=== PATIENT | female | born 1940 | race African-American/Black ===

== ENCOUNTER → 2020-02-22 10:45 | Outpatient (CLI) | payer MEDICARE, SELFPAY ==
--- NOTE | ~2020-02-22 | MM_ITS ---
EXAMINATION: MM screening lianet BI w brigida HISTORY: Screening TECHNIQUE: Craniocaudal and mediolateral oblique 3-D tomosynthesis images were obtained and synthetic 2-D images were generated. CAD analysis was submitted and interpreted. COMPARISON: Comparison to multiple prior studies sequentially, with oldest reviewed study dated 10/25. BREAST PARENCHYMAL COMPOSITION: Breast composed of scattered areas of fibroglandular density. FINDINGS: There is a developing asymmetry lateral aspect of the right breast on CC view. There are no nspecific calcifications in the upper inner quadrant of the left breast. IMPRESSION: 1. Developing right breast asymmetry laterally on CC view. Developing clustered calcifications upper inner quadrant of the left breast. 2. Additional mammographic views and possible breast ultrasound are recommended. BI-RADS Category 0: Incomplete: Needs additional imaging evaluation. Reviewed, dictated and finalized at location A. ESS ARCHITECT IMPRESSION: 1. Developing right breast asymmetry laterally on CC view. Developing clustered calcifications upper inner quadrant of the left breast. 2. Additional mammographic views and possible breast ultrasound are recommended . BI-RADS Category 0: Incomplete: Needs additional imaging evaluation.
== END ==
PROVIDERS: PCP Internal Medicine; Visit Provider Internal Medicine
DX: Z12.31 Encounter for screening mammogram for malignant neoplasm of breast (principal); R92.8 Other abnormal and inconclusive findings on diagnostic imaging of breast
CPT/HCPCS: 77063; 77067

== ENCOUNTER → 2020-03-27 08:53 | Outpatient (CLI) | payer MEDICARE, SELFPAY ==
--- NOTE | ~2020-03-27 | MMUS_ITS ---
EXAMINATION: MM diagnostic lianet BI w brigida, US breast RT limited HISTORY: Developing right breast asymmetry laterally on craniocaudal view. Developing clustered calci fications of the upper inner quadrant of left breast. TECHNIQUE: Additional 3-D tomosynthesis images of both breasts were performed including bilateral ML full field and multiple right spot views, and synthetic 2-D images were generated. Rolled medial and rolled lateral CC views of right breast. Magnification view of left breast. CAD analysis was submi tted and interpreted. High resolution right upper outer and lower outer quadrant breast ultrasound wa s performed. COMPARISON: 02/22/2020 bilateral digital screening mammogram FINDINGS: MAMMOGRAPHIC FINDINGS: There are benign arterial calcifications on the left. No malignant calcification is evident. No suspicious reproducible breast mass is detected. ULTRASOUND: There is a benign appearing 4.5 x 3.5 x 4.7 mm lymph node at 9:00 5 cm from nipple. No suspicious mass is detected. IMPRESSION: 1. No mammographic evidence of malignancy 2. Routine annual mammographic screening is recommended. BIRADS Category 2: Benign Reviewed, dictated and finalized at location A. OPEDIC BRACE MAKER IMPRESSION: 1. No mammographic evidence of malignancy 2. Routine annual mammographic screening is recommended. BIRADS Category 2: Benign
== END ==
PROVIDERS: PCP Internal Medicine; Visit Provider Internal Medicine
DX: R92.8 Other abnormal and inconclusive findings on diagnostic imaging of breast (principal)
CPT/HCPCS: 76642; 77062; 77066; G0279

== ENCOUNTER → 2021-02-24 12:00 | Outpatient (CLI) | payer MEDICARE, SELFPAY ==
--- NOTE | ~2021-02-24 | MM_ITS ---
EXAMINATION: MM screening lianet BI w brigida HISTORY: Screening TECHNIQUE: Craniocaudal and mediolateral oblique 3-D tomosynthesis images were obtained and synthetic 2-D images were generated. CAD analysis was submitted and interpreted. COMPARISON: Comparison to multiple prior studies sequentially, with oldest reviewed study dated 10/25. BREAST PARENCHYMAL COMPOSITION: There are scattered areas of fibroglandular density. FINDINGS: There is no evidence of suspicious mass, calcification, or architectural distortion to sugg est malignancy in either breast. There has been no suspicious interval change. IMPRESSION: 1. No mammographic evidence of malignancy. 2. Recommend routine screening mammography in one year. BI-RADS Category 1: Negative Reviewed, dictated and finalized at location A. TTING MANAGER
== END ==
PROVIDERS: PCP Internal Medicine; Visit Provider Internal Medicine
DX: Z12.31 Encounter for screening mammogram for malignant neoplasm of breast (principal)
CPT/HCPCS: 77063; 77067

== ENCOUNTER → 2021-07-14 13:11 | Outpatient (CLI) | payer MEDICARE, SELFPAY ==
--- NOTE | ~2021-07-14 | US_ITS ---
EXAMINATION: US retroperitoneal comp DATE: 07/14/2021 13:38 INDICATION: Stage I chronic kidney disease TECHNIQUE: Multiple ultrasound grayscale images of the kidneys were obtained. COMPARISON: None. FINDINGS: The right kidney measures 9.3 x 3.9 x 4.5 cm. The left kidney measures 9.8 x 5.7 x 5.6 cm. The kidney s demonstrate normal echogenicity. Bilateral anechoic renal cysts measuring 2.0 cm the upper pole of the right kidney, 3.6 cm at the lower pole of left kidney and 1.0 cm at the mid left kidney. There is no hydronephrosis in either kidney. No stones identified. The bladder is normal. IMPRESSION: 1. Bilateral renal cysts. Otherwise normal kidneys with no hydronephrosis. Reviewed, dictated and finalized at location B.
== END ==
PROVIDERS: PCP Specialist; Visit Provider Specialist
DX: N18.1 Chronic kidney disease, stage 1 (principal); N28.1 Cyst of kidney, acquired
CPT/HCPCS: 76770

== ENCOUNTER → 2022-02-25 12:06 | Outpatient (CLI) | payer MEDICARE, SELFPAY ==
--- NOTE | ~2022-02-25 | MM_ITS ---
EXAMINATION: MM screening lianet BI w brigida HISTORY: Screening TECHNIQUE: Craniocaudal and mediolateral oblique 3-D tomosynthesis images were obtained and synthetic 2-D images were generated. CAD analysis was submitted and interpreted. COMPARISON: Comparison to multiple prior studies sequentially, with oldest reviewed study dated 03/2016. BREAST PARENCHYMAL COMPOSITION: There are scattered areas of fibroglandular density. FINDINGS: There is no evidence of suspicious mass, calcification, or architectural distortion to sugg est malignancy in either breast. There has been no suspicious interval change. IMPRESSION: 1. No mammographic evidence of malignancy. 2. Recommend routine screening mammography in one year. BI-RADS Category 1: Negative Reviewed, dictated and finalized at location A. ER ATTACHER
== END ==
PROVIDERS: PCP Internal Medicine; Visit Provider Internal Medicine
DX: Z12.31 Encounter for screening mammogram for malignant neoplasm of breast (principal)
CPT/HCPCS: 77063; 77067

== ENCOUNTER → 2022-12-13 10:02 | Outpatient (CLI) | payer MEDICARE, SELFPAY ==
--- NOTE | ~2022-12-13 | DEXA_ITS ---
Bone Density Report Name: JANETH DORSEY Age: 82 Sex: Female Ethnicity: Black Date of : 1940 Indication: osteopenia; height loss; prior fracture; hysterectomy; postmenopausal Referring Provider: [place], [place] Study: Bone densitometry was performed. Exam Date: December 13, 2022 Accession number: [id number] Bone Density: Region BMD T-score Z-score Classification AP Spine (L1-L4) 0.775 -2.5 -0.3 Osteoporosis Femoral Neck (Left) 0.607 -2.2 -0.5 Osteopenia Total Hip (Left) 0.789 -1.3 0.1 Osteopenia Femoral Neck (Right) 0.567 -2.5 -0.8 Osteoporosis Total Hip (Right) 0.741 -1.6 -0.2 Osteopenia Total Hip Mean 0.765 -1.5 -0.1 Osteopenia World Health Organization criteria for BMD impression classify patients as: Normal (T-score at or above -1.0), Osteopenia (T-score between -1.0 and -2.5), or Osteoporosis (T-score at or below -2.5). 10-year Fracture Risk: FRAX not reported because: Some T-score for Spine Total or Hip Total or Femoral Neck at or below -2.5 Previous Exams: Region Exam Age BMD T-score BMD Change BMD Change Date g/cm2 vs Baseline vs Previous AP Spine(L1-L4) 12/13/2022 82 0.775 -2.5 -0.136 -0.064* 01/30/2019 78 0.839 -1.9 -0.072 -0.001 01/21/2016 75 0.840 -1.9 -0.071 -0.071 07/19/2005 64 0.911 -1.2 Total Hip(Left) 12/13/2022 82 0.789 -1.3 -0.145* -0.050* 01/30/2019 78 0.839 -0.8 -0.095* 0.049 01/21/2016 75 0.791 -1.2 -0.143 -0.143 07/19/2005 64 0.934 -0.1 Total Hip(Right) 12/13/2022 82 0.741 -1.6 -0.180* -0.094* 01/30/2019 78 0.835 -0.9 -0.086* 0.064 01/21/2016 75 0.770 -1.4 -0.151 -0.151 07/19/2005 64 0.921 -0.2 *Denotes significance at 95% confidence level, LSC for AP Spine = 0.022 g/cm2, LSC for Total Hip = 0.027 g/cm2 Clinical Information Provided by Patient: Has had a low trauma fracture Has used the following medications: Vitamin D Has the following medical conditions: Hysterectomy Patient maximum height was 68 Menopause Age: 48 Does not regularly consume dairy products Drinks caffeinated beverages Onset of menses at age 12 Number of children 4 Impression: The patient has established osteoporosis, based on the Total Spine T-score and the existence of a prior fracture. The patient has risk factors, including: previous fr
== END ==
PROVIDERS: PCP Internal Medicine; Visit Provider Internal Medicine
DX: Z78.0 Asymptomatic menopausal state (principal); M85.89 Other specified disorders of bone density and structure, multiple sites; M81.0 Age-related osteoporosis without current pathological fracture
CPT/HCPCS: 77080

== ENCOUNTER → 2023-03-01 10:01 | Outpatient (CLI) | payer MEDICARE, SELFPAY ==
--- NOTE | ~2023-03-01 | MM_ITS ---
EXAMINATION: MM screening lianet BI w brigida HISTORY: Screening TECHNIQUE: Craniocaudal and mediolateral oblique 3-D tomosynthesis images were obtained and synthetic 2-D images were generated. CAD analysis was submitted and interpreted. COMPARISON: Comparison to multiple prior studies sequentially, with oldest reviewed study dated 09/2017. BREAST PARENCHYMAL COMPOSITION: Breast composed of scattered areas of fibroglandular density FINDINGS: There is developing asymmetry with calcifications in the upper outer quadrant of the right breast, middle depth. The left breast is stable without evidence for malignancy. IMPRESSION: 1. Developing asymmetry upper outer quadrant of the right breast. 2. Additional mammographic views and possible breast ultrasound are recommended. BI-RADS Category 0: Incomplete: Needs additional imaging evaluation. Reviewed, dictated and finalized at location A. L PAN FORM PLACING SUPERVISOR IMPRESSION: 1. Developing asymmetry upper outer quadrant of the right breast. 2. Additional mammographic views and possible breast ultrasound are recommended . BI-RADS Category 0: Incomplete: Needs additional imaging evaluation.
== END ==
PROVIDERS: PCP Internal Medicine; Visit Provider Internal Medicine
DX: Z12.31 Encounter for screening mammogram for malignant neoplasm of breast (principal); R92.8 Other abnormal and inconclusive findings on diagnostic imaging of breast
CPT/HCPCS: 77063; 77067

== ENCOUNTER → 2023-04-05 09:53 | Outpatient (CLI) | payer MEDICARE, SELFPAY ==
--- NOTE | ~2023-04-05 | MMUS_ITS ---
EXAMINATION: MM diagnostic lianet RT w brigida, US breast RT limited HISTORY: Follow-up right breast asymmetry TECHNIQUE: Additional 3-D tomosynthesis images of the right breast were performed and synthetic 2-D i mages were generated. CAD analysis was submitted and interpreted. High resolution Limited right breas t ultrasound was performed. COMPARISON: Comparison to multiple prior studies sequentially, with oldest reviewed study dated 12/14. BREAST PARENCHYMAL COMPOSITION: Not dense: There are scattered areas of fibroglandular density. FINDINGS: MAMMOGRAPHIC FINDINGS: There is a focal asymmetry in the upper outer quadrant of the right breast with developing indetermin ate calcifications. There are no suspicious areas of architectural distortion. ULTRASOUND: Limited right breast ultrasound: At 10:00, 5 cm from the nipple, there is a slightly irregular shaped predominantly hypoechoic 4 mm mass with internal echogenic foci, likely calcifications. This likely corresponds to the area of mammographic concern. IMPRESSION: 1. Irregular shaped 4 mm mass with internal calcifications at the 10:00 position, 5 cm from the nippl e. 2. Stereotactic right breast biopsy recommended. BI-RADS category 4, suspicious findings. Reviewed, dictated and finalized at location A. MAKER IMPRESSION: 1. Irregular shaped 4 mm mass with internal calcifications at the 10:00 positio n, 5 cm from the nipple. 2. Stereotactic right breast biopsy recommended. BI-RADS category 4, suspicious findings.
== END ==
PROVIDERS: PCP Internal Medicine; Visit Provider Internal Medicine
DX: R92.8 Other abnormal and inconclusive findings on diagnostic imaging of breast (principal)
CPT/HCPCS: 76642; 77061; 77065; G0279

== ENCOUNTER 2023-05-02 14:27 | Outpatient (CLI) | payer MEDICARE, SELFPAY ==
--- NOTE | ~2023-05-02 | MM_ITS ---
MM consultation 05/02/2023 14:28 Indication: Abnormal calcifications seen on prior examination. Biopsy requested. Procedure: Stereotactic biopsy was attempted without success due to technical difficulties. Comparison: 04/05/2013 Findings: Stereotactic biopsy could not be performed due to technical difficulties. Consider repeat s tereotactic biopsy, ultrasound-guided biopsy or surgical biopsy using wire localization or magseed pl acement. Impression: 1: Unsuccessful stereotactic biopsy. Recommendation discussed above. BI-RADS CATEGORY 4-SUSPICIOUS ABNORMALITY Reviewed, dictated and finalized at location A. Impression: 1: Unsuccessful stereotactic biopsy. Recommendation discussed above. BI-RADS CATEGORY 4-SUSPICIOUS ABNORMALITY
== END 2023-05-02 14:28 | disposition home or self-care (01) ==
PROVIDERS: PCP Internal Medicine; Visit Provider Internal Medicine
DX: N63.10 Unspecified lump in the right breast, unspecified quadrant (principal); R92.8 Other abnormal and inconclusive findings on diagnostic imaging of breast
CPT/HCPCS: 99199

== ENCOUNTER 2024-04-09 13:57 | Outpatient (CLI) | payer OTHER, SELFPAY ==
--- NOTE | ~2024-04-09 | XR_ITS ---
Right elbow Technique: AP, oblique, and lateral views were obtained. Clinical History: Pain Findings: No acute fracture or dislocation is seen. Osseous alignment is anatomic. Joint spaces are p reserved. There is no displacement of the fat pads, and soft tissues are unremarkable. Impression: Unremarkable radiographs. Reviewed, dictated and finalized at [facility]. L COMBINATION TRUCK DRIVER Impression: Unremarkable radiographs.
== END 2024-04-09 13:58 | disposition home or self-care (01) ==
LOC: MICIMG 14:02
PROVIDERS: PCP Family Medicine; Visit Provider Orthopaedic Surgery
DX: M25.521 Pain in right elbow (principal)
CPT/HCPCS: 73080

== ENCOUNTER 2024-12-16 13:51 | Outpatient (CLI) | payer OTHER, SELFPAY ==
--- NOTE | ~2024-12-16 | DEXA_ITS ---
Bone Density Report Name: JANETH DORSEY Age: 84 Sex: Female Ethnicity: Black Date of : 1940 Indication: postmenopausal osteoporosis; height loss; prior fracture; hysterectomy; Referring Provider: SHANAE WEBB Study: Bone densitometry was performed. Exam Date: December 16, 2024 Accession number: [id number] Bone Density: Region BMD T-score Z-score Classification AP Spine(L1-L4) 0.774 -2.5 Osteoporosis Femoral Neck (Left) 0.583 -2.4 Osteopenia Total Hip (Left) 0.738 -1.7 Osteopenia Femoral Neck (Right) 0.555 -2.6 Osteoporosis Total Hip (Right) 0.707 -1.9 Osteopenia Total Hip Mean 0.723 -1.8 0.0 Osteopenia World Health Organization criteria for BMD impression classify patients as: Normal (T-score at or above -1.0), Osteopenia (T-score between -1.0 and -2.5), or Osteoporosis (T-score at or below -2.5). 10-year Fracture Risk: FRAX not reported because: Some T-score for Spine Total or Hip Total or Femoral Neck at or below -2.5 Previous Exams: -- Region Exam Age BMD T-score BMD Change BMD Change Date g/cm2 vs Baseline vs Previous -- AP Spine (L1-L4) 12/16/2024 84 0.774 -2.5 -15.1%# -0.2% 12/13/2022 82 0.775 -2.5 -15.0%# -7.6%* 01/30/2019 78 0.839 -1.9 -8.0%# -0.1% 01/21/2016 75 0.840 -1.9 -7.8%# -7.8%# 07/19/2005 64 0.911 -1.2 Total Hip(Left) 12/16/2024 84 0.738 -1.7 -21.0%* -6.5%* 12/13/2022 82 0.789 -1.3 -15.5%* -6.0%* 01/30/2019 78 0.839 -0.8 -10.1%* 6.1%# 01/21/2016 75 0.791 -1.2 -15.3%# -15.3%# 07/19/2005 64 0.934 -0.1 Total Hip(Right) 12/16/2024 84 0.707 -1.9 -23.2%* -4.5%* 12/13/2022 82 0.741 -1.6 -19.5%* -11.2%* 01/30/2019 78 0.835 -0.9 -9.4%* 8.4%# 01/21/2016 75 0.770 -1.4 -16.4%# -16.4%# 07/19/2005 64 0.921 -0.2 -- *Denotes significance at 95% confidence level, LSC for AP Spine = 0.022 g/cm2, LSC for Total Hip = 0.027 g/cm2 # Denotes dissimilar scan types or analysis methods Clinical Information Provided by Patient: Has had a low trauma fracture Has used the following medications: Vitamin D Has the following medical conditions: Hysterectomy Patient maximum height was 68 Menopause Age: 48 No regular weight bearing exercise Does not regularly consume dairy products Onset of menses at age 12 Number of children 4 Impression: The patient has established osteoporosis, based on the Right Femoral Neck T-score and the existence of a prior fracture. The patient has risk factors, including: previous fracture. The BMD for the Total Hip(Left) decreased, changing by -6.5% since the last DXA exam. The BMD for the Total Hip(Right) decreased, changing by -4.5% since the last DXA exam. Discussion: HIGH RISK OF FRACTURE. BONE DENSITY IS UNDESIRABLY LOW AT ONE OR MORE SKELETAL SITES, CONSISTENT WITH POSTMENOPAUSAL OSTEOPOROSIS. This patient's lowest T-score, in a patient who has previously fractured, meets the World Health Organization's (WHO) criteria for severe osteoporosis. In untreated patients, the risk of osteoporotic fracture increases approximately two-fold for each 1.0 SD decrease in T-score. Low bone density is not the only risk factor for fracture; also consider factors such as patient's age, frailty or poor health, risk of falling, risk of injury, previous osteoporotic fracture, family history of osteoporosis, cigarette smoking, low body weight, etc. Not everyone with low bone mineral density has osteoporosis; osteomalacia and other metabolic bone disorders should also be considered. Patients who have osteoporosis should be evaluated for specific diseases and conditions (secondary causes) that may cause or contribute to bone loss. The [place] [employer]ocrin[employer] (AACE) and National Osteoporosis Foundation (NOF) recommend pharmacologic intervention for all postmenopausal women whose T-score is in this range. The patient should follow a healthful lifestyle (good nutrition with adequate calcium and vitamin D, and appropriate weight-bearing exercise). Follow-Up: Consider a repeat BMD and Vertebral Fracture Assessment (VFA) exam in 2 years or sooner if medically necessary, to reassess this patient's status. Reported by: DAVID on 12/16/2024 3:44:00 PM. Reviewed, dictated and finalized at location A.
== END 2024-12-16 13:52 | disposition home or self-care (01) ==
PROVIDERS: PCP Family Medicine; Visit Provider Family Medicine
DX: Z78.0 Asymptomatic menopausal state (principal); M81.0 Age-related osteoporosis without current pathological fracture; M85.852 Other specified disorders of bone density and structure, left thigh; M85.851 Other specified disorders of bone density and structure, right thigh
CPT/HCPCS: 77080

== ENCOUNTER 2025-02-07 14:19 | Outpatient (CLI) | payer OTHER, SELFPAY ==
--- NOTE | ~2025-02-07 | US_ITS ---
US renal BI 02/07/2025 14:37 Procedure: Realtime transabdominal ultrasound of the kidneys and bladder. Indication: Chronic kidney disease. Comparison: No prior studies for comparison. Findings: Renal echotexture is normal bilaterally without hydronephrosis, contour deforming mass or renal calculus. There are bilateral renal cysts, largest on the right measuring 2.4 cm on the left measuring 3.9 cm. The right kidney measures 10.2 cm and left kidney measures 10.2 cm. Bladder within normal limits. Impression: 1: Bilateral renal cysts. Reviewed, dictated and finalized at location O. TER DOPER Impression: 1: Bilateral renal cysts.
== END 2025-02-07 14:20 | disposition home or self-care (01) ==
LOC: MICIMG 14:19
PROVIDERS: PCP Family Medicine; Visit Provider Internal Medicine Nephrology
DX: I12.9 Hypertensive chronic kidney disease with stage 1 through stage 4 chronic kidney disease, or unspecified chronic kidney disease (principal); N18.32 Chronic kidney disease, stage 3b; E11.22 Type 2 diabetes mellitus with diabetic chronic kidney disease; N28.1 Cyst of kidney, acquired
CPT/HCPCS: 76770